=== PATIENT | female | born 1940 | race Two or more races ===

== ENCOUNTER 2016-10-02 15:27 | Emergency (ER) | payer OTHER ==
[~2016-10-02] VITALS: Ht 157.5 cm; Wt 59.0 kg
[~2016-10-02 15:27] MED LIST: NKM
--- NOTE | 2016-10-02 15:29 | Emergency Room Report ---
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 then syncope without trauma - coworkers lowered to ground Occurred 2 hours "after eating fish and meat." Feels better "after vomiting" No precipitating chest pain, SOB, abd pain, headache No known heart disease Asymptomatic now EMS rhythm strip was NSR, no ischemia on scene Allergies: Coded Allergies: No Known Allergies (Unverified , 10/02/16) Patient History Past Medical History: none Past Surgical History: none Pertinent Family History: none Social History: Denies: alcohol use, drug use, smoking Now: No Immunizations: UTD Reviewed Nursing Documentation: PMH: Agreed, PSxH: Agreed Nursing Documentation-PMH Past Medical History: No Stated History Review of Systems All Other Systems: negative except mentioned in HPI Physical Exam Vital Signs Date Time Temp Pulse Resp B/P Pulse Ox O2 Delivery O2 Flow Rate FiO2 10/02/16 15:20 98.8 80 16 111/74 98 Room Air Sp02 EP Interpretation: reviewed, normal General Appearance: normal inspection, well appearing, no apparent distress, alert, GCS 15, non-toxic, other - dried vomit on shirt Head: normocephalic, atraumatic Eyes: bilateral eye EOMI, bilateral eye PERRL ENT: normal ENT inspection, hearing grossly normal, normal voice Neck: normal inspection, full range of motion, supple, no bony tend Respiratory: normal inspection, lungs clear, normal breath sounds, no respiratory distress, no retraction, no wheezing Cardiovascular #1: regular rate, rhythm, no edema Gastrointestinal: normal inspection, normal bowel sounds, non tender, soft, no guarding, no hernia Genitourinary: no CVA tenderness Musculoskeletal: normal inspection, back normal, normal range of motion, Rosina' s Sign negative Neurologic: normal inspection, alert, oriented x3, responsive, body care manager III-XII nml as tested, motor strength/tone normal, speech normal Psychiatric: normal inspection, judgement/insight normal, mood/affect normal Skin: normal inspection, normal color, no rash Medical Decision Making Diagnostic Impression: Primary Impression: Syncope Qualified Codes: R55 - Syncope and collapse Additional Impressions: Food poisoning Qualified Codes: T62.91XA - Toxic effect of unspecified noxious substance eaten as food, accidental (unintentional), initial encounter Hypokalemia TRISTIAN (acute kidney injury) ER Course Labs with TRISTIAN and hypoK, possibly caused by HCTZ she takes for HTN Hypotension/TRISTIAN tx with IVF NS HypoK repleted orally ECG is NSR. No ischemia. Troponin 0. Unlikely ACS or PE or infection as cause of syncope, vomiting given dehydration/ ?food poisoning more likely and also given results of ECG/troponin and no leg swelling, no hypoxia, and no right heart strain on ECG Advised PMD followup to evaluate HCTZ as best choice for managing HTN DC home EKG Diagnostic Results Rate: normal Rhythm: NSR ST Segments: no acute changes ASA given to the pt in ED: No Rhythm Strip Diag. Results EP Interpretation: yes Rhythm: NSR, no PVC's, no ectopy Last Vital Signs Date Time Temp Pulse Resp B/P Pulse Ox O2 Delivery O2 Flow Rate FiO2 10/02/16 15:20 98.8 80 16 111/74 98 Room Air Status: improved Disposition: HOME, SELF-CARE JANICE WAY M.D. Oct 02, 2016 15:29
[2016-10-02] MEDS ORDERED: Famotidine 20 MG/ 2ML VIAL IVP ONE (15:30)
[2016-10-02] MEDS ORDERED: ATORVASTATIN CA20 MG ORAL (15:41)
[2016-10-02] MEDS ORDERED: HYDROCHLOROTH12.5 M2 ORAL (15:41)
[2016-10-02] MEDS ORDERED: LISINOPRIL2.5 MG ORAL (15:41)
[2016-10-02 15:58] LABS: BASOPHILS % (AUTO) 1.4 % (0.0-2.0); LYMPHOCYTES % (AUTO) 27.7 % (20.0-45.0); MEAN CORPUSCULAR HEMOGLOBIN 33.2 PG (27.0-31.0); MEAN CORPUSCULAR HGB CONC 34.8 G/DL (32.0-36.0); MEAN CORPUSCULAR VOLUME 96 FL (80-99); MEAN PLATELET VOLUME 6.6 FL (6.5-10.1); MONOCYTES % (AUTO) 8.8 % (1.0-10.0); NEUTROPHILS % (AUTO) 61.2 % (45.0-75.0); PLATELET COUNT 243 K/UL (150-450); RED BLOOD COUNT 3.39 M/UL (4.20-5.40); RED CELL DISTRIBUTION WIDTH 12.4 % (11.6-14.8); WHITE BLOOD COUNT 7.5 K/UL (4.8-10.8)
[2016-10-02 16:12] LABS: ALANINE AMINOTRANSFERASE 13 U/L (3-33); ALBUMIN/GLOBULIN RATIO 1.6 (1.0-2.7); ANION GAP 13 (5-15); ASPARTATE AMINO TRANSFERASE 22 U/L (5-40); CARBON DIOXIDE 27 mEQ/L (20-30); CHLORIDE 99 mEQ/L (98-107); CREATININE 1.5 mg/dL (0.5-0.9); HEMOLYSIS 4; LIPASE 56 U/L (< 60); POTASSIUM 3.1 mEQ/L (3.4-4.9); SODIUM 139 mEQ/L (135-145); TOTAL PROTEIN 6.8 g/dL (6.6-8.7); TROPONIN I < 0.30 ng/mL (<=0.30)
[2016-10-02] MEDS ORDERED: KCl 10% 40mEq/30ml liquid NG ONE (16:30)
[2016-10-02] MEDS ORDERED: KCl 10% 40mEq/30ml liquid ORAL ONE (16:45)
[2016-10-02 17:46] VITALS: BP 110/61
[2016-10-02 18:36] VITALS: BP 124/67
== END 2016-10-02 18:40 | disposition home or self-care (01) ==
LOC: EDBD 15:27 → EMR 16:45
DX: R55 Syncope and collapse (principal); T62.91XA Toxic effect of unspecified noxious substance eaten as food, accidental (unintentional), initial encounter; E87.6 Hypokalemia; N17.9 Acute kidney failure, unspecified
CPT/HCPCS: 36415; 80053; 83690; 84484; 85025; 93005; 96360; 96374; 96375; 99284; J2405; S0028